=== PATIENT | female | born 1985 | race Caucasian/White ===

== ENCOUNTER 2018-06-16 11:52 | Day surgery (SDC) | payer OTHER ==
[2018-06-16 11:06] LABS: PLATELET COUNT 257 10^3/uL (150-400)
[~2018-06-16 11:52] MED LIST: ACETAMINOPHEN 500 MG TAB PO PRN; METHOTREXATE 25 MG/ML SYRINGE IM ONE
[2018-06-16] MEDS ORDERED: LR 1,000 ML IV ONE (11:56)
[2018-06-16] MEDS ORDERED: fentaNYL 100 MCG/2 ML INJ ONE ×2 (12:06→12:13)
[2018-06-16] MEDS ORDERED: ceFAZolin 2 GM/DEXTROSE 100 ML IV ONE (12:06)
[2018-06-16] MEDS ORDERED: fentaNYL 100 MCG/2 ML INJ IVP ONE ×2 (12:06→13:00)
[2018-06-16] MEDS ORDERED: MIDAZOLAM 2 MG/2 ML VIAL IVP ONE (12:08)
--- NOTE | 2018-06-16 12:09 | PDANEPAE ---
ANE Past Medical History - Cardiovascular History Hx Hypertension: No Hx Arrhythmias: No Hx Chest Pain: No Hx Coronary Artery / Peripheral Vascular Disease: No Hx CHF / Valvular Disease: No Hx Palpitations: No - Pulmonary History Hx COPD: No Hx Asthma/Reactive Airway Disease: No Hx Recent Upper Respiratory Infection: No Hx Oxygen in Use at Home: No Hx Sleep Apnea: No - Endocrine History Hx Diabetes: No Hypothyroid: No Hyperthyroid: No Obesity: no - Other Health History Other Health History: HPV, HSV - Chronic Pain History Chronic Pain: No ANE Review of Systems Review of systems is: negative Review of Systems: - Exercise capacity Exercise capacity: >=4 METS ANE Patient History - Allergies Allergies/Adverse Reactions: No Known Allergies Allergy (Unverified 04/09/14 07:12) - Home Medications Home medications: home medication list seen and reviewed Home Medications: Blood Builder Vit w/ Iron 1 tab PO DAILY 04/09/14 [Last Taken 04/08/14] 1 tab PO DAILY 04/09/14 [Last Taken 04/08/14] Valtrex 1 tab PO DAILY 04/09/14 [Last Taken 04/08/14] - Smoking Hx Smoking Status: Never smoked ANE Labs/Vital Signs - Labs Result Diagrams: 06/16/18 10:55 06/16/18 10:55 - Vital Signs Blood Pressure: 139/79 Heart Rate: 86 Height: 170.18 cm Weight: 64.41 kg ANE Physical Exam - Airway Neck exam: FROM Mallampati Score: Class 1 Mouth exam: normal dental/mouth exam - Pulmonary Pulmonary: clear to auscultation - Cardiovascular Cardiovascular: regular rate and rhythym - ASA Status ASA Status: I, E ANE Anesthesia Plan Anesthesia Plan: general endotracheal anesthesia
[2018-06-16] MEDS ORDERED: PROPOFOL 200 MG/20 ML VIAL ONE ×2 (12:14→14:05)
[2018-06-16] MEDS ORDERED: ROCURONIUM 50 MG/5 ML VIAL ONE ×2 (12:14→13:45)
[2018-06-16] MEDS ORDERED: SILVER NITRATE APPLICATOR 1 APPL TP ONE (12:42)
[2018-06-16] MEDS ORDERED: BUPIVACAINE 0.5% 30 ML SDV ONE (12:42)
[2018-06-16] MEDS ORDERED: SCOPOLAMINE HYDROBROMIDE 1 MG/3 DAYS PATCH TD ONE ×2 (12:48→12:59)
[2018-06-16] MEDS ORDERED: PROPOFOL/EMULSION 500 MG/50 ML BOTTLE IV ONE ×2 (12:58→13:38)
[2018-06-16] MEDS ORDERED: CEFAZOLIN 2 GM/DEXTROSE/100 ML BAG IV ONE (12:58)
--- NOTE | 2018-06-16 13:06 | GHP ---
DATE OF ADMISSION: 06/16/2018 ADMITTING DIAGNOSES: 1. Right lower quadrant pain. 2. Vaginal bleeding. 3. Positive with no IUP on u/s and adnexal mass HISTORY OF PRESENT ILLNESS: Patient is a 32-year-old, G4, P 2-0-1-2 with a last menstrual period, 05/10/2018, who had a positive test, 06/04/2018 , who presents with complaints of vaginal bleeding that started, 06/09/2018. She had bleeding like her menses for 5-7 days. She then took another test and it was still positive. The patient had mild cramping at that time. She had blood work done on the that showed a quant HCG of 176. It was repeated 48 hours later and more than doubled at 338. The patient states she has had no bleeding for the last 2 days, but this morning woke up with some pinkish blood on her underwear and also noted some more intense cramping. The patient denies any fevers, chills, nausea, vomiting, chest pain, shortness of breath. Patient came into our office and had an ultrasound done showing no IUP , but a left adnexal mass and some free fluid. PAST OB HISTORY: Uncomplicated vaginal delivery in 2013 and 2016. SAB at 8 weeks with a D and C in 2015. PAST GOVERNMENT EMPLOYEE HISTORY: Age of menarche was 11. Cycles are regular. The patient denies a history of abnormal Pap smears. Last Pap was in 2016 and normal. 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 MEDICATIONS: Include vitamins. ALLERGIES: No known drug allergies. PAST MEDICAL HISTORY: Unremarkable. PAST SURGICAL HISTORY: None. FAMILY HISTORY: Father, non-Hodgkin's. SOCIAL HISTORY: Patient is . She is a joam-df-gumj mom and lives with her and their 2 children. Denies any alcohol, tobacco, or illicit drug use. LABS: White count 6.76. H and H, 13/36.9, platelets 257. CMP is normal. Quantitative hCG (06/13) was 176; (06/14) and then was 338. O positive, antibody negative. STUDIES: On ultrasound, uterus is retroverted, measuring 8 x 3 x 5 cm. There is no IUP noted. Right ovary appears 8 mm collapsed follicle. Left ovary is seen inferior and slightly medial. There is a 16 x 6 x 13 mm mass seen with a prominent vessel suspicious for ectopic . There is free fluid seen in the posterior cul-de-sac. REVIEW OF SYSTEMS: Negative. Pertinent positives noted in HPI. EXAM: VITAL SIGNS: Stable. Blood pressure is 139/79. Heart rate is 86. Temperature is 37.1. GENERAL: The patient is a well-nourished, well-developed female. Alert and oriented x3. She is in mild distress secondary to constant pain in the right lower quadrant. SKIN: Warm, dry without rash. NEURO: Grossly intact. CARDIOVASCULAR: Regular rate and rhythm. LUNGS: Clear to auscultation bilaterally. ABDOMEN: Soft. There is moderate tenderness to palpation in the right lower quadrant. No rebound. No guarding. PELVIC: Patient is not actively bleeding and cervix is closed. EXTREMITIES: Normal to inspection without calf tenderness or edema. ASSESSMENT/PLAN: The patient is a 32-year-old, G4, P 2-0-1-2, with right lower quadrant abdominal pain, vaginal bleeding, and a positive test, with no IUP seen on ultrasound, but adnexal mass is seen. 1. Admit to Labor and Delivery for observation. 2. Discussed with her pain and fluid in pelvis on ultrasound that it is likely an ectopic with early rupture. Discussed treatment with surgical removal of tube with ectopic laparoscopically. 3. Surgical consents were reviewed with the patient. We discussed the risks, benefits, and alternatives, including, but not limited to, bleeding, infection, and damage to surrounding organs. The patient understands all risks at this time. Wants to proceed with surgery. 4. Antibiotics semiconductor package symbol stamper to operating room. 5. Sequential compression devices for deep venous thrombosis prophylaxis. 6. Patient is Rh positive. No RhoGAM is needed. /[id number]/MODL MTDD
[2018-06-16] MEDS ORDERED: HYDROmorphONE/DILAUDID 2 MG/ML INJ ONE (13:25)
[2018-06-16] MEDS ORDERED: DEXAMETHASONE 4 MG/ML VIAL ONE (13:32)
[2018-06-16] MEDS ORDERED: KETOROLAC 30 MG/1 ML SDV ONE (14:01)
[2018-06-16] MEDS ORDERED: ONDANSETRON 4 MG/2 ML VIAL ONE (14:01)
[2018-06-16] MEDS ORDERED: NEOSTIGMINE METHYLSULFATE 5 MG/5 ML SYR ONE (14:06)
[2018-06-16] MEDS ORDERED: GLYCOPYRROLATE 0.2 MG/1 ML VIAL ONE ×2 (14:06)
[2018-06-16] MEDS ORDERED: DEXAMETHASONE 4 MG/ML VIAL IVP PRN (14:08)
[2018-06-16] MEDS ORDERED: ONDANSETRON 4 MG/2 ML VIAL IVP PRN (14:08)
[2018-06-16] MEDS ORDERED: METOCLOPRAMIDE 10 MG/2 ML VIAL IVP PRN (14:08)
[2018-06-16] MEDS ORDERED: oxyCODONE IR 5 MG TAB PO PRN (14:08)
[2018-06-16] MEDS ORDERED: NALOXONE HCL 0.4 MG/ML INJ IVP PRN (14:08)
[2018-06-16] MEDS ORDERED: fentaNYL 100 MCG/2 ML INJ IVP PRN (14:08)
[2018-06-16] MEDS ORDERED: ACETAMINOPHEN 500 MG TAB PO PRN (14:08)
[2018-06-16] MEDS ORDERED: HYDROCODONE/APAP 5/325 TAB PO PRN (14:08)
[2018-06-16] MEDS ORDERED: ALBUTEROL 3 ML DEYVIAL IH PRN (14:08)
[2018-06-16] MEDS ORDERED: DIAZEPAM 5 MG/ML 1 ML SYR IVP PRN (14:08)
[2018-06-16] MEDS ORDERED: MEPERIDINE 25 MG/0.5 ML AMP IVP PRN (14:08)
[2018-06-16] MEDS ORDERED: HYDROmorphONE/DILAUDID 2 MG/ML INJ IVP PRN (14:08)
[2018-06-16] MEDS ORDERED: PROMETHAZINE HCL 25 MG/ML INJ IVP PRN (14:08)
--- NOTE | 2018-06-16 14:24 | POSTOPPROG ---
Post Op Note Date of Operation: 06/16/18 Surgeon: Heidy aMlloy Business Ethics Professor: LIDIA Shahid Anesthesiologist: Sabi BOTELLO Anesthesia: GET(General Endotracheal) Pre-op Diagnosis: RLQ pain, vaginal bleeding, pos. with no IUP and an adnexal mass Post-op Diagnosis: RLQ pain, vaginal bleeding, pos. with no IUP and an adnexal mass Indication: 32 y/o with LMP 05/10 with RLQ pain, VB and no IUP, + adnexal mass Procedure: Dx Laparoscopy with evac. of hemoperitoneum and RS with ectopic removal Findings: Normal uterus, L tube/ov; enlarged R tube w/ isthmic ectopic and rupture Inf/Abcess present in the surg proc area at time of surgery?: No Depth: Organ Space EBL: 50-100 (50cc) Total fluids administered: 1500 cc LR UO: 150 cc clear urine Complications: None Specimen(s): R fallopian tube with ectopic
--- NOTE | 2018-06-16 14:43 | POSTANESTH ---
Post Anesthetic Evaluation Cardiovascular Status: Normal, Stable Respiratory Status: Normal, Stable Level of Consciousness/Mental Status: Can Participate in Eval Pain Control: Adequate, Prn Tx Ordered Nausea/Vomiting Control: Adequate, Prn Tx Ordered Complications Possibly Related to Anesthesia: None Noted
[2018-06-16] MEDS ORDERED: HYDROCODONE/APAP 5/325 TAB ONE (16:16)
[2018-06-16 16:21] VITALS: BP 121/71
--- NOTE | 2018-06-17 06:59 | GOP ---
DATE OF OPERATION: 06/16/2018 SURGEON: Heidy Malloy DO MEMS INTEGRATION ENGINEER: LIDIA Riley. ANESTHESIA: General endotracheal. ANESTHESIOLOGIST: Sabi Alvarado MD. PREOPERATIVE DIAGNOSIS: 1. Right lower quadrant pain. 2. Vaginal bleeding. 3. Positive with no intrauterine on ultrasound and adnexal mass. POSTOPERATIVE DIAGNOSIS: 1. Right lower quadrant pain. 2. Vaginal bleeding. 3. Positive with no intrauterine on ultrasound and adnexal mass. 4. Ruptured right ectopic . PROCEDURE PERFORMED: 1. Diagnostic laparoscopy. 2. Right salpingectomy with removal of ectopic . 3. Evacuation of hemoperitoneum. FINDINGS: On bimanual exam, the uterus was slightly enlarged, mobile, anteverted, there was fullness noted in the right adnexa. There was active bleeding, and the cervical os was parous. Laparoscopic findings revealed a ruptured right ectopic , it appeared to be an isthmic ectopic. The lef t fallopian tube and ovary and uterus all appeared normal. Upper abdomen appeared normal as well as appendix, and there was a small amount of blood noted in the cul-de-sac as well as near the right ect opic. ESTIMATED BLOOD LOSS: 50 cc. INDICATIONS: The patient is a 32-year-old 4, para 2-0-1-2, last menstrual period 05/10, who presented with complaints of vaginal bleeding and a positive test. Patient had an ultrasou nd that showed no intrauterine , but a left adnexal mass measuring 1 x 1 cm. Upon admission to the hospital, pain became worse, constant to severe, requiring pain medicine, and patient started to have heavy bleeding. We discussed with her pain and ultrasound results also showing free fluid, that this was likely ruptured and patient is not a candidate for methotrexate, recommend proceeding t o the operating room for laparoscopy with removal of tube and ectopic . We discussed risks, benefits, alternatives of the procedure including, but not limited to, bleeding, infection, damage t o surrounding organs. Patient understands all risks at this time. Patient was properly consulted. DESCRIPTION OF PROCEDURE: The patient was taken back to the operating room where general anesthesia was obtained without difficulty. The patient was prepped and draped in the dorsal lithotomy position . A Dhaliwal catheter was placed at this time. After a WHO time-out was performed, an open-ended specu lum was placed in the vagina. There was active bleeding noted. The anterior lip of the cervix was g rasped with an Allis clamp. The uterus was sounded to 8 cm. An acorn manipulator was placed up insi de the cervix to provide a means to manipulate the uterus. We then turned our attention to the abdomen. Infraumbilically, this area was then injected with 0.5% plain Marcaine. Then, a 5 mm incision was made with a scalpel. A Veress needle was then introduced in this incision while tenting the abdominal wall. Aspiration was negative. Pneumoperitoneum was o btained with opening pressure of 4 mmHg and reached 3.5 L of CO2 gas. The Veress needle was then rem sancehz, and using a 5 mm trocar and 0-degree scope, this was directly advanced into the abdomen into th e peritoneal cavity under direct visualization. Pelvic anatomy was visualized. At this time, using more local in the right and left lower quadrants, then a 10 mm incision was made in the right lower q uadrant and a 5 mm incision was made in the left lower quadrant. Atraumatic trocars were then placed under direct visualization and balloons inflated. The patient was placed in Trendelenburg position, and we had good visualization of pelvic anatomy. Pelvic findings as noted above. At this time, we noted the blood. So, a suction/fuel cell test engineer was place d inside the port, and the hemoperitoneum was evacuated. We then turned our attention to the right t ube with the ectopic. This was grasped with the [place], and then using the LigaSure, then a comple te salpingectomy was performed. The mesosalpinx was cauterized multiple times, transected. This was done all the way to the cornual insertion of the tube. Our pedicles did appear hemostatic. There w as no bleeding. At this time, using the 10 mm port, an EndoCinch bag was placed down into the port, and the right tube with ectopic was placed in the EndoCinch bag and was removed through the 10 mm por t without difficulty. We looked at our pedicles again, everything appeared hemostatic. The pelvis w as suctioned and irrigated with normal saline and hemostasis noted. At this time, using the Napoleon-Alessandra fascial device, the fascia of the 10 mm incision was closed w ith 0 Vicryl. We then removed the remaining trocars and all instruments from the abdomen. All gas w as allowed to escape, and the skin incisions were then closed with Dermabond. We then went down belo w. The Dhaliwal catheter was removed, revealing clear urine, and the uterine manipulator was removed. There was no bleeding noted from the cervix. Hemostasis was noted. The patient tolerated the procedure well. There were no complications. The patient was taken out of dorsal lithotomy position, awakened, and sent to the PACU in stable condition. INTRAVENOUS FLUIDS: 1500 cc LR. URINE OUTPUT: 150 cc of clear urine at the end of the procedure. /[id number]/MODL
== END 2018-06-16 16:36 | disposition home or self-care (01) ==
LOC: FSGY 11:52 → FLD 11:52 → UNDOADMIN 11:52 → FOBOP 16:36 → UNDODISIN 16:36
PROVIDERS: ATTEND Obstetrics & Gynecology
PROC: 10T24ZZ Resection of Products of Conception, Ectopic, Percutaneous Endoscopic Approach (ICD-10-PCS; principal; 2018-06-16 12:45)
PROC: 0UT54ZZ Resection of Right Fallopian Tube, Percutaneous Endoscopic Approach (ICD-10-PCS; principal; 2018-06-16 12:45)
DX: O00.90 Unspecified ectopic pregnancy without intrauterine pregnancy (principal)
CPT/HCPCS: J0690; J1100; J1170; J1885; J2250; J2405; J2704; J2710; J3010; J7613